=== PATIENT | female | born 1985 | race Caucasian/White ===

== ENCOUNTER 2016-03-09 10:35 | Emergency (ER) | payer OTHER ==
[2016-03-09 10:59] VITALS: BP 137/80
[2016-03-09] MEDS ORDERED: Ibuprofen TAB* 600 MG PO ONE (11:16)
--- NOTE | 2016-03-09 11:17 | UC ---
Lower Extremity/Ankle HPI - HPI Summary HPI Summary: Patient has had non descriptive left knee pain on and off for a month. she denies any trauma to the knee. Feels " like it needs to crack". worse with ativity. pain is in the back of the knee. - History of Current Complaint Chief Complaint: UCLowerExtremity Stated Complaint: KNEE PAIN Time Seen by Provider: 03/09/16 10:45 Hx Obtained From: Patient Hx Last Menstrual Period: 03/08/16 Onset/Duration: Sudden Onset, Lasting Weeks Severity Initially: Moderate Severity Currently: Moderate Pain Intensity: 6 Pain Scale Used: 0-10 Numeric Aggravating Factor(s): Standing, Ambulation Alleviating Factor(s): Rest Able to Bear Weight: Yes - Risk Factors Gout Risk Factors: Negative DVT Risk Factors: Negative Septic Arthritis Risk Factor: Negative - Allergies/Home Medications Allergies/Adverse Reactions: Allergies Allergy/AdvReac Type Severity Reaction Status Date / Time Acetaminophen [From Vicodin] Allergy Hallucinati Verified 03/09/16 10:59 ons Hydrocodone [From Vicodin] Allergy Hallucinati Verified 03/09/16 10:59 ons Tramadol [From Ultram] Allergy Unknown Verified 03/09/16 10:59 Reaction Details Home Medications: Home Medications Acetaminophen [Tylenol] 325 mg PO 03/09/16 [History] PMH/Surg Hx/FS Hx/Imm Hx Previously Healthy: Yes - Surgical History Surgical History: Yes Surgery Procedure, Year, and Place: c section - Family History Known Family History: Negative: Cardiac Disease, Hypertension - Social History Alcohol Use: None Substance Use Type: None Smoking Status (MU): Never Smoked Tobacco Review of Systems Constitutional: Negative Skin: Negative Eyes: Negative ENT: Negative Respiratory: Negative Cardiovascular: Negative Gastrointestinal: Negative Genitourinary: Negative Motor: Negative Neurovascular: Negative Musculoskeletal: Arthralgia, Decreased ROM Neurological: Negative Psychological: Negative All Other Systems Reviewed And Are Negative: Yes Physical Exam Triage Information Reviewed: Yes Appearance: Well-Appearing, Well-Nourished, Pain Distress Vital Signs: Initial Vital Signs Temp 98.1 F 03/09/16 10:55 Pulse 88 03/09/16 10:55 Resp 16 03/09/16 10:55 BP 137/80 03/09/16 10:55 Pulse Ox 99 03/09/16 10:55 Vital Signs Reviewed: Yes Eye Exam: Normal Eyes: Positive: Conjunctiva Clear ENT Exam: Normal ENT: Positive: Normal ENT inspection, Pharynx normal, TMs normal Dental Exam: Normal Neck exam: Normal Neck: Positive: Supple, Nontender, No Lymphadenopathy Respiratory Exam: Normal Respiratory: Positive: Chest non-tender, Lungs clear, Normal breath sounds Cardiovascular Exam: Normal Cardiovascular: Positive: RRR, No Murmur, Pulses Normal Abdominal Exam: Normal Abdomen Description: Positive: Nontender, No Organomegaly, Soft Bowel Sounds: Positive: Present Musculoskeletal Exam: Normal Musculoskeletal: Positive: Strength Intact, ROM Intact, No Edema Neurological Exam: Normal Neurological: Positive: Alert, Muscle Tone Normal Psychological Exam: Normal Skin Exam: Normal Lower Extremity Course/Dx - Course Course Of Treatment: hx obtained, exam performed, meds given, xray obtained neg for fracture. hx of old back muscle strain, pain seems to be nerve related. meds prescribed and referral to Ortho given. - Differential Dx/Diagnosis Differential Diagnosis/HQI/PQRI: Sciatica, Sprain, Strain Provider Diagnoses: left knee pain. back muscle strain Discharge - Discharge Plan Condition: Stable Disposition: HOME Prescriptions: Gabapentin CAP(*) [Neurontin 100 mg CAP(*)] 100 mg PO TID #90 cap Ibuprofen TAB* [Motrin TAB* 600 MG] 600 mg PO Q6H PRN #30 tab PRN Reason: Pain Referrals: Analisa Vázquez MD [Medical Doctor] - Additional Instructions: take the medications as prescribed. Start doing your PT exercises that you have done in the past to help your back pain. follow up with the orthopedic if symptoms persist.
--- NOTE | 2016-03-09 11:45 | RAD ---
Indication: Left knee pain. 4 views of left knee demonstrates no fracture. No other bone or joint abnormality is identified. IMPRESSION: No fracture of the left knee is noted.
== END 2016-03-09 12:33 | disposition home or self-care (01) ==
LOC: MERGE 10:35 → UCEAST 10:35
DX: M25.562 Pain in left knee (principal); S39.012S Strain of muscle, fascia and tendon of lower back, sequela; X58.XXXS Exposure to other specified factors, sequela; Z88.6 Allergy status to analgesic agent; Z88.5 Allergy status to narcotic agent
CPT/HCPCS: 99202; A9270-GY; G0463